=== PATIENT | male | born 1985 | race African-American/Black ===

== ENCOUNTER 2016-11-16 10:58 | Emergency (ER) | payer MEDICAID ==
[2016-11-16] MEDS ORDERED: NORMAL SALINE 1,000 ML IV ONE (11:02)
[2016-11-16] MEDS ORDERED: ONDANSETRON HCL/PF 2 MG/ML VIAL IV ONE (11:02)
[2016-11-16] MEDS ORDERED: ONDANSETRON HCL/PF 2 MG/ML VIAL ONE (11:08)
--- NOTE | 2016-11-16 11:15 | ERNOTE ---
Abdominal HPI - Narrative Date of Service: 11/16/16 - General Chief Complaint: Abdominal Pain Time Seen by Provider: 11/16/16 11:00 Source: patient Exam Limitations: no limitations - Immun/Allergies/Home Medications Allergies/Adverse Reactions: Allergies No Known Allergies Allergy (Unverified 11/16/16 11:07) Home Medications: HOME MEDICATIONS Ondansetron [Zofran Odt] 4 mg PO Q6H PRN #20 tab 11/16/16 [Last Taken Unknown] - History of Present Illness Narrative: 31-year-old male brought in by ambulance for nausea and vomiting. Patient states that he ate some sausage this morning that did not taste right and has since been having abdominal pain and throwing up. Date (Duration): 11/16/16 Timing: constant Quality: aching, stabbing Activities at Onset: none Modifying Factors - (Worsens): Present: eating Associated Symptoms: Present: diaphoresis, nausea, vomiting, loss of appetite. Absent: back pain, chest pain, fever/chills, shortness of breath Prior Abdominal Problems: Present: none Review of Systems - Narrative Narrative: patient is c/o sever abd pain after eating some sausage that didnt taste right. - Review of Systems Constitutional: Present: no symptoms reported EYE: Present: no symptoms reported ENT: Present: no symptoms reported Respiratory: Present: no symptoms reported Cardiology: Present: no symptoms reported Gastrointestinal/Abdominal: Present: See HPI, nausea, vomiting Genitourinary: Present: no symptoms reported Musculoskeletal: Present: no symptoms reported Skin: Present: no symptoms reported Neurological: Present: no symptoms reported Endocrine: Present: no symptoms reported Hematologic/Lymphatic: Present: no symptoms reported Psych: Present: no symptoms reported All Other Systems: All systems neg except as marked Physical Exam - Physical Exam Narrative: abdomen tender around umbilical area, patient doesn't want to stand up straight , abd is soft and palpable. patient stats he did eat a lot of food yesterday and states he did smoke marijuana yesterday General Appearance: Present: wd/wn, alert, mild distress Eye Exam: Normal inspection: bilateral Ears, Nose, Throat: Present: normal ENT inspection, normal pharynx Neck: Present: normal inspection, nontender Respiratory: Present: no respiratory distress, normal breath sounds, no accessory muscle use, chest nontender, lungs clear Cardiovascular/Chest: Present: regular rate, rhythm, no murmur, normal peripheral pulses Gastrointestinal/Abdominal: Present: normal bowel sounds, tenderness, distended Back Exam: Present: normal inspection, normal range of motion, no CVA tenderness , no vertebral tenderness Extremity Exam: Present: normal inspection, non-tender, normal range of motion, no edema Neurological Exam: Present: alert, oriented, normal mood/affect, no motor/ sensory deficits Skin Exam: Present: normal color, warm/dry Lymphatic Exam: Present: no adenopathy ED Progress - Results and Orders Patient's Lab Results:: I have reviewed the patient's lab results. - Vital Signs Patient's Vital Signs:: I have reviewed the patient's vital signs. - X-Ray X-Ray #1 X-Ray: abdomen Interpretation: Reviewed by me X-ray Comments: Exam Date: 11/16/2016 11:03 Ordering Physician: Jamie Bone HISTORY: Diffuse abdominal pain starting this a.m. TWO VIEW ABDOMEN / ABDOMINAL SERIES COMPARISON: None Supine and erect AP projections of the abdomen and pelvis were obtained. There are small amounts of gas identified within the small bowel and colon. I do not see evidence for gaseous dilatation of the bowel, air-fluid levels, or free air. The stomach is distended with food debris. The visualized lung bases are clear. I am not convinced of radiodensities overlying the kidneys. IMPRESSION: 1. NONSPECIFIC BOWEL GAS PATTERN. 2. STOMACH DISTENDED WITH FOOD DEBRIS Electronically signed by Moiz Hussein M.D.. - CT/Ultrasound CT/Ultrasound Narrative: Exam Date: 11/16/2016 11:03 Ordering Physician: Jamie Hernandez HISTORY: Diffuse abdominal pain starting this a.m. TWO VIEW ABDOMEN / ABDOMINAL SERIES COMPARISON: None Supine and erect AP projections of the abdomen and pelvis were obtained. There are small amounts of gas identified within the small bowel and colon. I do not see evidence for gaseous dilatation of the bowel, air-fluid levels, or free air. The stomach is distended with food debris. The visualized lung bases are clear. I am not convinced of radiodensities overlying the kidneys. IMPRESSION: 1. NONSPECIFIC BOWEL GAS PATTERN. 2. STOMACH DISTENDED WITH FOOD DEBRIS Electronically signed by Moiz Hussein M.D.. - Progress/Reassessment Chief Complaint: Abdominal Pain Progress:: Improved Plan - Plan Plan: patient states he smoked " weed' yesterday several times and at a lot of food. Departure - Departure Clinical Impression: Gastroenteritis Disposition: Home self-care Condition: Stable Instructions: Nausea, Adult, Gastritis, Adult, [id number] Additional Instructions: Previous home medications as directed. Follow-up through primary care plan in the next 2-3 days. Return to the emergency room if you start running a fever or nausea and vomiting is unable to be controlled with medication. Prescriptions: Ondansetron [Zofran Odt] 4 mg PO Q6H PRN #20 tab PRN Reason: Nausea
[2016-11-16 11:22] LABS: Hematocrit 44.3 % (42.0-52.0); Hemoglobin 15.4 gm/dL (13.5-18.0); Mean Corpuscular Hemoglobin 31.6 pg (27-31); Mean Corpuscular Hgb Conc 34.8 g/dl (32-36); Mean Platelet Volume 8.4 fl (6.0-9.5); Neutrophil % 56.9 % (42-75.0); Platelet Count 289 K/mm3 (150-450); Red Blood Count 4.87 M/mm3 (4.7-6.0); Red Cell Distribution Width 13.4 % (11.5-14.0)
[2016-11-16 11:34] LABS: Albumin * 3.6 gm/dl (3.4-5.0); Anion Gap 11.4 mmol/L (6.8-13.8); BUN/Creatinine Ratio 5.7 (9.0-21.6); Bilirubin, Total 0.3 mg/dL (0.0-1.1); Ca. Corrected For Albumin 9.4 mg/dL (8.4-10.2); Calcium * 9.4 mg/dL (7.9-10.9); Carbon Dioxide 31.3 mmol/L (24-32.6); Potassium 3.7 mmol/L (3.4-4.6); Total Protein 7.7 gm/dL (6.2-8.2)
[2016-11-16 12:28] LABS: Urine Bilirubin Negative (NEGATIVE); Urine Blood Negative /ul (NEGATIVE); Urine Ketone Negative (NEGATIVE); Urine Nitrite Negative (NEGATIVE); Urine Protein Negative (NEGATIVE); Urine Urobilinogen Normal (NORMAL); Urine pH 7.5 pH (5.0-7.0)
[2016-11-16 12:41] LABS: Urine Appearance Clear; Urine Bacteria None Seen; Urine Color Yellow; Urine RBC TRACE /hpf (0-5); Urine WBC None Seen /hpf (0-5)
[2016-11-16 12:43] LABS: Cocaine Ur Negative (NEGATIVE); Urine Barbiturate Negative (NEGATIVE); Urine Benzodiazepines Negative (NEGATIVE); Urine Opiates Negative (NEGATIVE); Urine PCP Negative (NEGATIVE)
[2016-11-16 12:45] LABS: Urine THC Positive (NEGATIVE)
[2016-11-16 14:48] VITALS: BP 137/83
[2016-11-16] MEDS ORDERED: DIATRIZOATE MEGLU/DIATRIZO SOD 30 ML BTL PO ONE (14:48)
== END 2016-11-16 14:14 | disposition home or self-care (01) ==
LOC: ER 10:58
DX: R10.9 Unspecified abdominal pain (principal); K52.9 Noninfective gastroenteritis and colitis, unspecified
CPT/HCPCS: 36415; 74020; 74177; 80053; 80307; 81001; 82150; 83690; 85025; 96374; 99283; J2405